=== PATIENT | male | born 1965 | race African-American/Black ===

== ENCOUNTER 2023-10-09 19:36 | Emergency (ER) | payer MEDICAID, OTHER ==
[~2023-10-09] VITALS: Ht 185.4 cm; Wt 81.6 kg
[2023-10-09] MEDS ORDERED: CYCLOBENZAPRINE 10 MG TABLET ONE (20:30)
[2023-10-09] MEDS ORDERED: NAPROXEN 250 MG TABLET ONE (20:31)
[2023-10-09] MEDS: CYCLOBENZAPRINE 10 MG TABLET PO ONE (20:34)
[2023-10-09] MEDS: NAPROXEN 250 MG TABLET PO ONE (20:35)
[2023-10-09] MEDS ORDERED: NAPR500T6 PO (22:05)
[2023-10-09] MEDS ORDERED: CYCL5TAB PO (22:05)
[2023-10-09 22:28] VITALS: BP 128/72; TEMP 98; O2SAT 99
== END 2023-10-09 22:28 | disposition home or self-care (01) ==
LOC: ER 19:38
DX: M54.2 Cervicalgia (principal); M25.511 Pain in right shoulder; F17.200 Nicotine dependence, unspecified, uncomplicated; Z90.49 Acquired absence of other specified parts of digestive tract; Z79.899 Other long term (current) drug therapy
CPT/HCPCS: 73000-TC